=== PATIENT | female | born 1975 | race Caucasian/White ===

== ENCOUNTER → 2016-12-25 | Emergency (ER) | payer BC ==
[~2016-12-25] MED LIST: ACETAMINOPHEN/CAFFEINE/BUTALBITAL 1 TAB ONE; ACETAMINOPHEN/CAFFEINE/BUTALBITAL 1 TAB PO ONE; DEXAMETHASONE SOD PHOSPHATE 10 MG/1 ML VIAL IVPB ONE; DEXAMETHASONE SOD PHOSPHATE 10 MG/1 ML VIAL ONE; METOCLOPRAMIDE HCL INJECTION 10 MG/2 ML VIAL IVPB ONE; METOCLOPRAMIDE HCL INJECTION 10 MG/2 ML VIAL ONE
[2016-12-25 14:45] VITALS: BMI 20.2
--- NOTE | 2016-12-25 16:57 | PDOC ---
History of Present Illness - History of Present Illness Initial Comments: 12/25/16 20:07 Patient is a 40 year old female with no significant medical hx who is presenting to the ED with one month of headache. Patient states that for the past month shes had intermittent headache that is diffuse with worse pain to the right side. The patient also complains of worsening dizziness and fatigue over the last three days. Her dizziness is characterized as the room is spinning whenever she closes her eyes. The patient also reports that her headache has worsened and become constant. The patient was seen for her symptoms at [facility] where she received an MRI on . The patient states that her PCP called her reporting that they "found something" on the results of the MRI but patient states they did not provide further detail. She has an upcoming appointment with her PCP later in the week. The patient also notes she was treated for a sinus infection over the past several weeks with nasal steroids and antibiotics. Denies any nausea, vomiting, visual changes, weakness, control, or loss of consciousness. Surgical Hx: LEEP Procedure (2004) PCP: Zeynep Banuelos MD ([facility]) [phone] Allergies: NKDA LNMP: 12/01/16 Social Hx: Denies tobacco, drug, or alcohol use. <Lavonne Trent - Last Filed: 12/25/16 20:07> <Tia Palumbo - Last Filed: 01/01/17 00:30> - General Chief Complaint: Headache Stated Complaint: DIZZINESS,HEADACH Time Seen by Provider: 12/25/16 16:32 Past History <Lavonne Trent - Last Filed: 12/25/16 20:07> - Past Medical History Other medical history: NONE - Psycho/Social/Smoking Cessation Hx Anxiety: No Suicidal Ideation: No Smoking History: Never smoked Information on smoking cessation initiated: No Hx Alcohol Use: No Drug/Substance Use Hx: No Substance Use Type: None <Tia Palumbo - Last Filed: 01/01/17 00:30> - Past Medical History Allergies/Adverse Reactions: Allergies Allergy/AdvReac Type Severity Reaction Status Date / Time No Known Allergies Allergy Verified 12/25/16 14:41 Home Medications: Ambulatory Orders Meclizine HCl 25 mg PO PRN PRN 12/25/16 Review of Systems - Review of Systems Comments:: 12/25/16 20:20 CONSTITUTIONAL: Present: fatigue Absent: fever, chills, diaphoresis, loss of appetite HEENT: Absent: rhinorrhea, nasal congestion, throat pain, throat swelling, difficulty swallowing, mouth swelling, ear pain, eye pain, visual changes CARDIOVASCULAR: Absent: chest pain, syncope, palpitations, irregular heart rate, lightheadedness , peripheral edema RESPIRATORY: Absent: cough, shortness of breath, dyspnea with exertion, orthopnea, wheezing, stridor, hemoptysis GASTROINTESTINAL: Absent: abdominal pain, abdominal distension, nausea, vomiting, diarrhea, constipation, melena, hematochezia GENITOURINARY: Absent: dysuria, frequency, urgency, hesitancy, hematuria, flank pain, genital pain MUSCULOSKELETAL: Absent: myalgia, arthralgia, joint swelling SKIN: Absent: rash, itching, pallor HEMATOLOGIC/IMMUNOLOGIC: Absent: easy bleeding, easy bruising, lymphadenopathy, frequent infections ENDOCRINE: Absent: unexplained weight gain, unexplained weight loss, heat intolerance, cold intolerance NEUROLOGIC: Present: headache, dizziness Absent: focal weakness or paresthesia, unsteady gait, seizure, mental status changes, bladder or bowel incontinence. PSYCHIATRIC: Absent: anxiety, depression, suicidal or homicidal ideation, hallucinations <Lavonne Trent - Last Filed: 12/25/16 20:07> *Physical Exam - Vital Signs Last Vital Signs Temp Pulse Resp BP Pulse Ox 98.0 F 90 18 111/65 100 12/25/16 14:42 12/25/16 14:42 12/25/16 14:42 12/25/16 14:42 12/25/16 14:42 - Physical Exam Comments: 12/25/16 20:21 GENERAL: Well developed, well nourished. Awake and alert. No acute distress. HEENT: Normocephalic, atraumatic. PERRLA, EOMI. No conjunctival pallor. Sclera are non- icteric. Moist mucous membranes. Oropharynx is clear. NECK: Supple. Full ROM. No JVD. Carotid pulses 2+ and symmetric, without bruits. No thyromegaly. No lymphadenopathy. CARDIOVASCULAR: Regular rate and rhythm. No murmurs, rubs, or gallops. Distal pulses are 2+ and symmetric. PULMONARY: No evidence of respiratory distress. Lungs clear to auscultation bilaterally. No wheezing, rales or rhonchi. ABDOMINAL: Soft. Non-tender. Non-distended. No rebound or guarding. No organomegaly. Normoactive bowel sounds. MUSCULOSKELETAL: Normal range of motion at all joints. No bony deformities or tenderness. No CVA tenderness. EXTREMITIES: No cyanosis. No clubbing. No edema. No calf tenderness. SKIN: Warm and dry. Normal capillary refill. No rashes. No jaundice. NEUROLOGICAL: Alert, awake, appropriate. No diplopia. No dysmetria. Cranial nerves 2-12 intact. Normal speech. Toes are down-going bilaterally. Gait is normal without ataxia. PSYCHIATRIC: Cooperative. Good eye contact. Appropriate mood and affect. <Lavonne Trent - Last Filed: 12/25/16 20:07> - Vital Signs Last Vital Signs Temp Pulse Resp BP Pulse Ox 98.0 F 90 18 111/65 100 12/25/16 14:42 12/25/16 14:42 12/25/16 14:42 12/25/16 14:42 12/25/16 14:42 <Tia Palumbo - Last Filed: 01/01/17 00:30> ED Treatment Course - Medications Given in the ED: ED Medications Discontinued Medications Generic Name Dose Route Start Last Admin Trade Name Yoko PRN Reason Stop Dose Admin Acetaminophen/Butalbital/Caffeine 1 tablet 12/25/16 17:58 12/25/16 18:25 Fioricet - PO 12/25/16 17:59 1 tablet ONCE ONE Administration Dexamethasone Sodium Phosphate 10 mg 12/25/16 18:46 12/25/16 19:40 Decadron Injection - IVPB 12/25/16 18:47 10 mg ONCE ONE Administration Diphenhydramine HCl 25 mg 12/25/16 18:44 12/25/16 19:40 Benadryl Injection - IVPUSH 12/25/16 18:45 25 mg ONCE ONE Administration Metoclopramide HCl 10 mg 12/25/16 18:44 12/25/16 19:40 Reglan Injection - IVPB 12/25/16 18:45 10 mg ONCE ONE Administration <Lavonne Trent - Last Filed: 12/25/16 20:07> Medical Decision Making - Medical Decision Making 01/01/17 00:22 this pt is being evaluated by her PCP Dr Zeynep Banuelos for headache and has had an MRI that showed a focal abnormality and she had an appt later in the week to see the neurologist - she had no gross focal neuro deficits -i spoke w our neurologist and at the time of her presentation she did not have any acute focal deficits. We discussed what would be recommended for her headache and she was given medications -she said she had new onset headaches since October and that is why she was sent for MRI -the pt came to the ER because she wanted further clarification of her MRI results. -I did speak to the physician covering Dr Banuelos and explained the pt's ER visit. Dr Banuelos will contact pt tomorrow -pt to see her neurologist for further evaluate and treatment - <Tia Palumbo - Last Filed: 01/01/17 00:30> *DC/Admit/Observation/Transfer - Attestations Scribe Attestion: 12/25/16 20:22 Documentation prepared by Lavonne Trent, acting as biomedical electronics technician for Tia Palumbo MD. <Lavonne Trent - Last Filed: 12/25/16 20:07> <Tia Palumbo - Last Filed: 01/01/17 00:30> Diagnosis at time of Disposition: New persistent daily headache - Discharge Dispostion Disposition: HOME Condition at time of disposition: Stable - Referrals Referrals: Zeynep Banuelos MD [Primary Care Provider] - - Patient Instructions Printed Discharge Instructions: DI for Headache Additional Instructions: PLEASE KEEP YOUR APPOINTMENT WITH THE NEUROLOGIST THIS WEEK
[2016-12-25 21:08] VITALS: BP 104/68; PULSE 83; TEMP 98.5
== END | disposition home or self-care (01) ==
LOC: JER 14:39
PROC: 3E0333Z Introduction of Anti-inflammatory into Peripheral Vein, Percutaneous Approach (ICD-10-PCS; principal; 2016-12-25)
PROC: 3E033GC Introduction of Other Therapeutic Substance into Peripheral Vein, Percutaneous Approach (ICD-10-PCS; 2016-12-25)
PROC: 3E033GC Introduction of Other Therapeutic Substance into Peripheral Vein, Percutaneous Approach (ICD-10-PCS; 2016-12-25)
DX: G44.52 New daily persistent headache (NDPH) (principal)
CPT/HCPCS: 99282-25